=== PATIENT | female | born 1955 | race Caucasian/White ===

== ENCOUNTER 2018-03-14 06:34 | Day surgery (SDC) | payer BC ==
[~2018-03-14] VITALS: Ht 175.3 cm; Wt 70.4 kg
[2018-03-14] MEDS ORDERED: normal saline 1000ml 1,000 ML IV SCH (07:00)
[2018-03-14 07:04] VITALS: BP 120/54
[2018-03-14] MEDS ORDERED: ESTR0.5T PO (07:06)
[2018-03-14 07:10] LABS: HEMATOCRIT 38.5 % (35.0-45.0); HEMOGLOBIN 13.4 g/dl (12.0-16.0); MEAN CORPUSCULAR HEMOGLOBIN 31.6 PG (27.0-31.0); MEAN CORPUSCULAR HGB CONC 34.7 % (33.0-36.5); MEAN PLATELET VOLUME 9.3 FL (7.4-10.4); PLATELET COUNT 130 X10'3 (140-440); RED BLOOD COUNT 4.23 X10'6 (4.20-5.60); RED CELL DISTRIBUTION WIDTH 13.2 % (11.5-14.5); WHITE BLOOD COUNT 2.8 X10'3 (4.5-11.0)
[2018-03-14 07:41] LABS: PLATELET ESTIMATE DECREASED; TOTAL CELLS COUNTED 100
[2018-03-14] MEDS ORDERED: midazolam 2 mg/2 ml injection IV PRN (08:05)
[2018-03-14] MEDS ORDERED: fentaNYL/PF 50MCG/1 ML 2ML syringe IV PRN (08:05)
[2018-03-14] MEDS ORDERED: LIDOcaine 1%/PF (10mg/ml) 5ml vial SQ ONE (08:05)
[2018-03-14] MEDS ORDERED: heparin sodium, porcine/PF 100unit/ml 5ML syringe ICATH ONE (08:05)
[2018-03-14] MEDS ORDERED: LIDOcaine 1%/PF (10mg/ml) 5ml vial ONE (08:14)
[2018-03-14] MEDS ORDERED: midazolam 2 mg/2 ml injection ONE (08:18)
[2018-03-14] MEDS ORDERED: heparin sodium, porcine/PF 100unit/ml 5ML syringe ONE (08:19)
[2018-03-14] MEDS ORDERED: fentaNYL/PF 50MCG/1 ML 2ML syringe ONE (08:19)
[2018-03-14 09:30] VITALS: BP 127/64
[2018-03-14 09:45] VITALS: BP 118/59
[2018-03-14 10:00] VITALS: BP 112/56
[2018-03-14 10:15] VITALS: BP 117/63
[2018-03-14 10:30] VITALS: BP 120/54
== END 2018-03-14 10:30 | disposition home or self-care (01) ==
LOC: SSTAY O 06:34
PROVIDERS: ATTEND Radiology Diagnostic Radiology
DX: C52 Malignant neoplasm of vagina (principal); L40.8 Other psoriasis; Z85.828 Personal history of other malignant neoplasm of skin; Z90.722 Acquired absence of ovaries, bilateral; Z87.891 Personal history of nicotine dependence; Z98.890 Other specified postprocedural states; Z79.890 Hormone replacement therapy
CPT/HCPCS: 36415; 36561; 76937; 77001; 85025; 99152; 99153; A6219; C1788; C1894; J1642; J2001; J2250; J3010; J7030; A4620

== ENCOUNTER 2018-09-24 22:02 | Inpatient (IN) | payer BC | END 2018-10-03 22:05 | disposition short-term general hospital (02) | LOC: ER 22:02 → ED HOLD 09-25 04:11 → SUR 3N 09-25 15:37 ==